=== PATIENT | female | born 1975 | race Hispanic/Latino ===

== ENCOUNTER → 2016-09-22 | Outpatient (REF) | payer OTHER ==
[~2016-09-22] MED LIST: AVEL1TAB OR; COLA100C3 PO; FLAG250T PO; FLUC10TA PO; HYDR200T3 PO; PERCOCET PO; PRIL40CA PO; TYLE325T5 PO
== END ==
LOC: M SFHCLERA 12:40
PROVIDERS: ATTEND Nurse Practitioner Family
DX: R10.30 Lower abdominal pain, unspecified (principal)

== ENCOUNTER 2017-06-22 08:53 | Emergency (ER) | payer OTHER ==
[2017-06-22] MEDS: ONDANSETRON 4MG/2ML VIAL (J2405) IV (09:51)
[2017-06-22] MEDS: NS 1,000 ML IV (09:51)
[2017-06-22] MEDS: KETOROLAC 30 MG/ML VIAL (J1885) IV (09:51)
[2017-06-22 10:01] LABS: BASO % 0.7 % (0.0-1.0); EOS # 0.2 10^3/uL (0.0-0.50); EOS % 3.2 % (0.0-3.0); HEMATOCRIT 41.1 % (36.0-47.0); HEMOGLOBIN 14.1 g/dl (12.0-16.0); IMMATURE GRANULOCYTE % 0.4 % (0-0); LYMPH # 1.8 10^3/uL (1.5-4.5); LYMPH % 33.8 % (24.0-44.0); MEAN CORPUSCULAR HEMOGLOBIN 29.1 pg (27.0-33.0); MEAN CORPUSCULAR HGB CONC 34.3 g/dl (32.0-36.5); MEAN CORPUSCULAR VOLUME 84.9 fl (80.0-96.0); MONO # 0.5 10^3/uL (0.0-0.8); MONO % 9.9 % (0.0-5.0); NEUTROPHILS # 2.8 10^3/uL (1.8-7.7); PLATELET COUNT, AUTOMATED 390 10^3/uL (150-450); RED BLOOD COUNT 4.84 10^6/uL (4.00-5.40); RED CELL DISTRIBUTION WIDTH 13.2 % (11.5-14.5); WHITE BLOOD COUNT 5.4 10^3/uL (4.0-10.0)
[2017-06-22 10:11] LABS: KETONE, URINE AUTO RFX NEGATIVE (NEGATIVE); LEUKOCYTE ESTERASE UR AUTO RFX NEGATIVE (NEGATIVE); MUCUS, URINE RFX SMALL (NEGATIVE); NITRITE, URINE AUTO RFX NEGATIVE (NEGATIVE); RBC, URINE AUTO RFX 2 /HPF (0-3); SPECIFIC GRAVITY UR AUTO RFX 1.019 (1.002-1.035); SQUAM EPITHELIAL CELL UR AURFX 1 /HPF (0-6); WBC, URINE AUTO RFX 1 /HPF (0-3)
[2017-06-22 10:14] LABS: ALBUMIN 3.8 GM/DL (3.2-5.2); ALBUMIN/GLOBULIN RATIO 0.88 (1.00-1.93); ALKALINE PHOSPHATASE 70 U/L (45-117); ALT/SGPT 34 U/L (12-78); AMYLASE 64 U/L (25-115); ANION GAP 7 MEQ/L (8-16); AST/SGOT 21 U/L (7-37); BILIRUBIN,TOTAL 0.4 MG/DL (0.2-1.0); BLOOD UREA NITROGEN 13 MG/DL (7-18); CARBON DIOXIDE LEVEL 27 MEQ/L (21-32); CHLORIDE LEVEL 104 MEQ/L (98-107); CREATININE FOR GFR 0.73 MG/DL (0.55-1.02); GLOMERULAR FILTRATION RATE > 60.0 (>60); GLUCOSE, FASTING 89 MG/DL (70-105); LIPASE 157 U/L (73-393); POTASSIUM SERUM 4.3 MEQ/L (3.5-5.1); SODIUM LEVEL 138 MEQ/L (136-145); TOTAL PROTEIN 8.1 GM/DL (6.4-8.2)
[2017-06-22] MEDS: PERCOCET 5MG/325MG TAB PO (11:33)
== END 2017-06-22 11:46 | disposition home or self-care (01) ==
LOC: M ED 08:53
DX: N83.201 Unspecified ovarian cyst, right side (principal); R10.2 Pelvic and perineal pain; Z87.891 Personal history of nicotine dependence
CPT/HCPCS: J2405

== ENCOUNTER 2017-08-20 11:57 | Outpatient (RCR) | payer OTHER | END 2017-09-11 | LOC: M PT 11:57 | DX: Z47.89 Encounter for other orthopedic aftercare (principal); M75.81 Other shoulder lesions, right shoulder | CPT/HCPCS: 97010 ==

== ENCOUNTER → 2017-08-24 | Outpatient (CLI) | payer OTHER | LOC: M RAD 13:19 | DX: R10.2 Pelvic and perineal pain (principal); N83.201 Unspecified ovarian cyst, right side; R93.5 Abnormal findings on diagnostic imaging of other abdominal regions, including retroperitoneum | CPT/HCPCS: 76856 ==

== ENCOUNTER 2017-09-28 14:21 | Outpatient (RCR) | payer OTHER | END 2017-10-11 | LOC: M PT 14:21 | DX: M75.81 Other shoulder lesions, right shoulder (principal) | CPT/HCPCS: 97110 ==

== ENCOUNTER → 2017-10-01 | Outpatient (CLI) | payer OTHER | LOC: M PAIN 14:30 | DX: G89.29 Other chronic pain (principal); M79.609 Pain in unspecified limb; M79.1 Myalgia; J30.9 Allergic rhinitis, unspecified; K21.9 Gastro-esophageal reflux disease without esophagitis; E66.9 Obesity, unspecified; Z68.35 Body mass index [BMI] 35.0-35.9, adult; Z79.899 Other long term (current) drug therapy | CPT/HCPCS: G0463 ==

== ENCOUNTER → 2017-10-20 | Outpatient (CLI) | payer OTHER | LOC: M PAIN 14:30 | DX: M54.12 Radiculopathy, cervical region (principal); M79.1 Myalgia; J30.89 Other allergic rhinitis; E66.01 Morbid (severe) obesity due to excess calories; Z68.36 Body mass index [BMI] 36.0-36.9, adult; Z79.899 Other long term (current) drug therapy | CPT/HCPCS: G0463 ==

== ENCOUNTER → 2017-11-05 | Outpatient (CLI) | payer OTHER | LOC: M RAD 17:04 | DX: M75.81 Other shoulder lesions, right shoulder (principal) | CPT/HCPCS: 73221 ==

== ENCOUNTER → 2017-11-05 | Outpatient (REF) | payer OTHER ==
[2017-11-05 11:40] LABS: BASO % 0.5 % (0.0-1.0); EOS # 0.2 10^3/uL (0.0-0.50); EOS % 3.7 % (0.0-3.0); HEMATOCRIT 39.7 % (36.0-47.0); HEMOGLOBIN 13.1 g/dl (12.0-15.5); IMMATURE GRANULOCYTE % 0.2 % (0-3.0); LYMPH % 35.7 % (24.0-44.0); MEAN CORPUSCULAR HEMOGLOBIN 28.8 pg (27.0-33.0); MEAN CORPUSCULAR VOLUME 87.3 fl (80.0-96.0); MONO # 0.5 10^3/uL (0.0-0.8); NEUTROPHILS # 2.8 10^3/uL (1.8-7.7); NEUTROPHILS % 50.9 % (36.0-66.0); PLATELET COUNT, AUTOMATED 355 10^3/uL (150-450); RED BLOOD COUNT 4.55 10^6/uL (4.00-5.40); RED CELL DISTRIBUTION WIDTH 12.8 % (11.5-14.5); WHITE BLOOD COUNT 5.5 10^3/uL (4.0-10.0)
[2017-11-05 11:56] LABS: TOTAL 25(OH) VITAMIN D 30.6 NG/ML (30.0-100.0)
[2017-11-05 12:31] LABS: ALBUMIN 3.7 GM/DL (3.2-5.2); ALBUMIN/GLOBULIN RATIO 0.93 (1.00-1.93); ALKALINE PHOSPHATASE 66 U/L (45-117); ALT/SGPT 23 U/L (12-78); ANION GAP 6 MEQ/L (8-16); AST/SGOT 17 U/L (7-37); BILIRUBIN,TOTAL 0.3 MG/DL (0.2-1.0); BLOOD UREA NITROGEN 12 MG/DL (7-18); C REACTIVE PROTEIN QUANTITATIV 0.79 MG/DL (0.00-0.30); CALCIUM LEVEL 8.7 MG/DL (8.5-10.1); CARBON DIOXIDE LEVEL 29 MEQ/L (21-32); CHLORIDE LEVEL 104 MEQ/L (98-107); CREATININE FOR GFR 0.76 MG/DL (0.55-1.30); FREE T4 0.95 NG/DL (0.76-1.46); GLOMERULAR FILTRATION RATE > 60.0 (>58); GLUCOSE, FASTING 93 MG/DL (70-100); POTASSIUM SERUM 4.6 MEQ/L (3.5-5.1); SODIUM LEVEL 139 MEQ/L (136-145); TOTAL PROTEIN 7.7 GM/DL (6.4-8.2)
[2017-11-05 12:59] LABS: ERYTHROCYTE SEDIMENTATION RATE 9 mm/hr (0-20)
== END ==
LOC: M SFHCLERA 08:20
DX: R53.82 Chronic fatigue, unspecified (principal)
CPT/HCPCS: 84443

== ENCOUNTER → 2017-11-05 | Outpatient (CLI) | payer OTHER | LOC: M RAD 17:01 | DX: R93.0 Abnormal findings on diagnostic imaging of skull and head, not elsewhere classified (principal); M79.609 Pain in unspecified limb; R53.82 Chronic fatigue, unspecified; M75.81 Other shoulder lesions, right shoulder | CPT/HCPCS: 70551 ==

== ENCOUNTER → 2018-02-04 | Outpatient (CLI) | payer OTHER | LOC: M RAD 14:02 | DX: M79.609 Pain in unspecified limb (principal) | CPT/HCPCS: 72114 ==

== ENCOUNTER → 2018-02-21 | Outpatient (CLI) | payer OTHER ==
[2018-02-21 14:45] LABS: ANION GAP 8 MEQ/L (8-16); BLOOD UREA NITROGEN 12 MG/DL (7-18); CALCIUM LEVEL 8.9 MG/DL (8.5-10.1); CARBON DIOXIDE LEVEL 26 MEQ/L (21-32); CHLORIDE LEVEL 104 MEQ/L (98-107); CREATININE FOR GFR 0.72 MG/DL (0.55-1.30); GLOMERULAR FILTRATION RATE > 60.0 (>58); LDL CHOLESTEROL 111 MG/DL (<100); POTASSIUM SERUM 4.4 MEQ/L (3.5-5.1); SODIUM LEVEL 138 MEQ/L (136-145); TRIGLYCERIDES LEVEL 324 MG/DL (<150)
[2018-02-22 02:47] LABS: CHOLESTEROL LEVEL 217 MG/DL (<200); CHOLESTEROL RISK RATIO 5.292 (<5); HDL CHOLESTEROL 41 MG/DL (>40); NON-HDL-C 176 MG/DL
[2018-02-22 02:56] LABS: GLUCOSE, FASTING 91 MG/DL (70-100)
== END ==
LOC: M LAB 09:56
DX: Z13.220 Encounter for screening for lipoid disorders (principal); Z13.1 Encounter for screening for diabetes mellitus
CPT/HCPCS: 36415

== ENCOUNTER → 2018-02-22 | Outpatient (CLI) | payer OTHER | LOC: M RAD 09:22 | DX: Z12.31 Encounter for screening mammogram for malignant neoplasm of breast (principal); Z80.49 Family history of malignant neoplasm of other genital organs | CPT/HCPCS: 77067 ==

== ENCOUNTER → 2018-03-17 | Outpatient (CLI) | payer OTHER | LOC: M PAIN 13:30 | DX: M79.7 Fibromyalgia (principal); M51.36 Other intervertebral disc degeneration, lumbar region; J30.89 Other allergic rhinitis; Z79.899 Other long term (current) drug therapy | CPT/HCPCS: G0463 ==

== ENCOUNTER 2018-03-30 13:07 | Outpatient (RCR) | payer OTHER | END 2018-04-13 | disposition home or self-care (01) | LOC: M PT 04-01 10:06 | DX: Z47.89 Encounter for other orthopedic aftercare (principal); Z98.890 Other specified postprocedural states; M25.511 Pain in right shoulder | CPT/HCPCS: 97010 ==

== ENCOUNTER → 2018-04-11 | Outpatient (CLI) | payer OTHER ==
[2018-04-11 10:24] LABS: BASO % 0.6 % (0.0-1.0); EOS # 0.2 10^3/uL (0.0-0.50); EOS % 2.6 % (0.0-3.0); HEMATOCRIT 42.3 % (36.0-47.0); HEMOGLOBIN 13.9 g/dl (12.0-15.5); IMMATURE GRANULOCYTE % 0.3 % (0-3.0); LYMPH # 2.2 10^3/uL (1.5-4.5); MEAN CORPUSCULAR HEMOGLOBIN 28.8 pg (27.0-33.0); MEAN CORPUSCULAR HGB CONC 32.9 g/dl (32.0-36.5); MEAN CORPUSCULAR VOLUME 87.8 fl (80.0-96.0); MONO # 0.6 10^3/uL (0.0-0.8); MONO % 8.9 % (0.0-5.0); NEUTROPHILS # 3.3 10^3/uL (1.8-7.7); NEUTROPHILS % 52.6 % (36.0-66.0); PLATELET COUNT, AUTOMATED 388 10^3/uL (150-450); RED BLOOD COUNT 4.82 10^6/uL (4.00-5.40); RED CELL DISTRIBUTION WIDTH 12.4 % (11.5-14.5); WHITE BLOOD COUNT 6.3 10^3/uL (4.0-10.0)
[2018-04-11 10:45] LABS: ERYTHROCYTE SEDIMENTATION RATE 13 mm/hr (0-20)
[2018-04-11 10:52] LABS: ESTIMATED AVERAGE GLUCOSE 114 MG/DL (60-110); HEMOGLOBIN A1c 5.6 %
[2018-04-11 10:56] LABS: ALBUMIN 3.9 GM/DL (3.2-5.2); ALBUMIN/GLOBULIN RATIO 1.05 (1.00-1.93); ALKALINE PHOSPHATASE 72 U/L (45-117); ALT/SGPT 33 U/L (12-78); ANION GAP 6 MEQ/L (8-16); AST/SGOT 18 U/L (7-37); BILIRUBIN,TOTAL 0.4 MG/DL (0.2-1.0); BLOOD UREA NITROGEN 11 MG/DL (7-18); CALCIUM LEVEL 9.5 MG/DL (8.5-10.1); CARBON DIOXIDE LEVEL 28 MEQ/L (21-32); CHLORIDE LEVEL 104 MEQ/L (98-107); CREATININE FOR GFR 0.76 MG/DL (0.55-1.30); GLOMERULAR FILTRATION RATE > 60.0 (>58); GLUCOSE, FASTING 95 MG/DL (70-100); POTASSIUM SERUM 4.5 MEQ/L (3.5-5.1); RHEUMATOID FACTOR QUANT < 10.0 IU/ML (<15.0); SODIUM LEVEL 138 MEQ/L (136-145); TOTAL PROTEIN 7.6 GM/DL (6.4-8.2)
[2018-04-11 10:59] LABS: FOLATE 10.8 NG/ML
[2018-04-12 13:47] LABS: ALBUMIN % 58.3 % (55.8-66.1); ALPHA-1-GLOBULIN % 3.7 % (2.9-4.9)
[2018-04-12 13:48] LABS: ALBUMIN 4.43 GM/DL (3.29-5.55); ALPHA-1-GLOBULINS 0.28 GM/DL (0.17-0.41); ALPHA-2-GLOBULINS 0.68 GM/DL (0.42-0.99); ALPHA-2-GLOBULINS % 8.9 % (7.1-11.8); BETA-1-GLOBULINS 0.46 GM/DL (0.28-0.60); BETA-1-GLOBULINS % 6.1 % (4.7-7.2); BETA-2-GLOBULINS 0.39 GM/DL (0.19-0.55); BETA-2-GLOBULINS % 5.1 % (3.2-6.5); GAMMA GLOBULIN % 17.9 % (11.1-18.8); GAMMA GLOBULINS 1.36 GM/DL (0.65-1.58)
[2018-04-13 11:12] LABS: DRVV SCREEN 39.6 SEC
[2018-04-14 00:07] LABS: ANCA-ATYPICAL <1:20 titer (Neg:<1:20); ANTI DOUBLE STRAND-DNA AB 1 IU/mL (0-9); ANTINUCLEAR ANTIBODIES DIRECT Negative (Negative); CYTOPLASMIC NEUTROP AB ANCA-C <1:20 titer (Neg:<1:20); Lyme Disease IgG/IgM Antibodie <0.91 ISR (0.00-0.90); Lyme Disease IgM Ab Quantitati <0.80 index (0.00-0.79); PERINUCLEAR AB ANCA-P <1:20 titer (Neg:<1:20); SJOGREN'S ANTI SS-A <0.2 AI (0.0-0.9); SJOGREN'S ANTI SS-B <0.2 AI (0.0-0.9)
== END ==
LOC: M LAB 09:44
DX: M54.2 Cervicalgia (principal); M54.5 Low back pain; R53.1 Weakness
CPT/HCPCS: 82746

== ENCOUNTER 2018-04-15 09:58 | Outpatient (RCR) | payer OTHER | END 2018-05-13 | LOC: M PT 09:58 | DX: Z47.89 Encounter for other orthopedic aftercare (principal); Z98.890 Other specified postprocedural states; M25.511 Pain in right shoulder ==

== ENCOUNTER → 2018-04-21 | Outpatient (REF) | payer OTHER | LOC: M SFHCLERA 10:49 | DX: N64.3 Galactorrhea not associated with childbirth (principal) ==

== ENCOUNTER → 2018-04-22 | Outpatient (CLI) | payer OTHER ==
[2018-04-22 09:54] LABS: ANION GAP 3 MEQ/L (8-16); BLOOD UREA NITROGEN 11 MG/DL (7-18); CALCIUM LEVEL 9.4 MG/DL (8.5-10.1); CARBON DIOXIDE LEVEL 30 MEQ/L (21-32); CHLORIDE LEVEL 103 MEQ/L (98-107); CREATININE FOR GFR 0.75 MG/DL (0.55-1.30); FREE T4 0.84 NG/DL (0.76-1.46); GLOMERULAR FILTRATION RATE > 60.0 (>58); GLUCOSE, FASTING 103 MG/DL (70-100); POTASSIUM SERUM 4.8 MEQ/L (3.5-5.1); SODIUM LEVEL 136 MEQ/L (136-145)
[2018-04-22 10:32] LABS: ESTIMATED AVERAGE GLUCOSE 117 MG/DL (60-110); HEMOGLOBIN A1c 5.7 %
[2018-04-22 12:28] LABS: PROLACTIN 5.8 NG/ML
== END ==
LOC: M LAB 08:32
DX: N64.3 Galactorrhea not associated with childbirth (principal)
CPT/HCPCS: 84146

== ENCOUNTER → 2018-04-27 | Outpatient (CLI) | payer OTHER ==
[2018-04-27 14:25] LABS: IMMUNOGLOBULIN A 179 MG/DL (70-400)
[2018-04-29 00:56] LABS: ENDOMYSIAL ABY IgA Negative (Negative); TISSUE TRANSGLUTAMINASE IgA <2 U/mL (0-3); UNITSIGA FOR GLIADIN IGA 6 units (0-19); UNITSIGG FOR GLIADIN IGG 3 units (0-19)
== END ==
LOC: M SMT 09:44
DX: K29.70 Gastritis, unspecified, without bleeding (principal)
CPT/HCPCS: 86255

== ENCOUNTER 2018-06-02 12:28 | Outpatient (RCR) | payer OTHER ==
[~2018-06-02 12:28] MED LIST changes: +AMIT25TA PO; -AVEL1TAB OR; +AVEL1TAB3 OR; -COLA100C3 PO; +COLA100C5 PO; +MOTR200T44 PO; +NAPR-50 PO; +PERC5TAB12 PO; +ZOFR4TAB14 PO
== END 2018-06-13 ==
LOC: M PT 12:28
PROVIDERS: ATTEND Orthopaedic Surgery
DX: Z47.89 Encounter for other orthopedic aftercare (principal); Z98.890 Other specified postprocedural states

== ENCOUNTER 2018-06-24 08:58 | Outpatient (RCR) | payer OTHER | END 2018-06-24 09:38 | disposition home or self-care (01) | LOC: M PT 08:58 | PROVIDERS: ATTEND Orthopaedic Surgery | DX: M54.2 Cervicalgia (principal); M54.5 Low back pain ==

== ENCOUNTER 2018-06-27 09:05 | Outpatient (RCR) | payer OTHER | END 2018-07-14 | LOC: M PT 09:05 | PROVIDERS: ATTEND Psychiatry & Neurology Neurology | DX: M54.2 Cervicalgia (principal); M54.5 Low back pain ==

== ENCOUNTER → 2018-07-07 | Outpatient (REF) | payer OTHER | LOC: M SFHCLERA 07-05 09:34 | PROVIDERS: ATTEND Family Medicine | DX: R10.13 Epigastric pain (principal) ==

== ENCOUNTER → 2018-07-20 | Outpatient (CLI) | payer OTHER ==
--- NOTE | 2018-08-03 23:47 | ECWPNPC ---
PATIENT NAME: REGINE ELLER : 1975 GENDER: FEMALE VISIT DATE: 07/20/2018 DISCHARGE DATE: 07/20/18 1555 VISIT LOCKED DATE TIME: PHYSICIAN: ADRIAN AUSTIN RESOURCE: ADRIAN AUSTIN HISTORY OF PRESENT ILLNESS HISTORY OF PRESENT ILLNESS: HERE FOR F/U OF CHRONIC GENERALIZED BACK PAIN.SUFFERS FROM CHRONIC BILATERAL WRIST AND KNEE PAIN.SAW NEUROLOGY LOCALLY PER OUR REFERRAL.HAD IMAGING DONE OF SPINE AND HAS BEEN REFERRED TO [place] SURGE[facility].HAS BEEN HAVING CHRONIC NAUSEA AND EPIGASTRIC PAIN.IS FOLLOWING WITH DR. SERVANDO SIMON ,PRIMARY CAREFOR THIS.DISCUSSED TREATMENT OPTIONS.HAVING PERSISTENT LEFT PERISCAPULAR PAIN.RATING PAIN VAS 6/10. PAIN THE PATIENT DESCRIBES THE PAIN... FALL RISK SCREENING: SCREENING :NO FALLS IN THE PAST YEAR CURRENT MEDICATIONS TAKING VITAMIN D 5000 UNITS 1 TABLET ORALLY ONCE A DAY TAKING CALCIUM 1 TAB ORAL DAILY TAKING GABAPENTIN 600 MG TABLET 1 CAPSULE ORALLY THREE TIMES DAILY TAKING LORATADINE 10 MG TABLET 1 TAB ORALLY DAILY TAKING RANITIDINE HCL 150 MG TABLET 1 TABLET AT BEDTIME ORALLY ONCE A DAY TAKING SERTRALINE HCL 25 MG TABLET 1 TABLET ORALLY ONCE A DAY TAKING CYCLOBENZAPRINE HCL 5 MG TABLET 1 TABLET NEEDED ORALLY DAILY MEDICATION LIST REVIEWED AND RECONCILED WITH THE PATIENT PAST MEDICAL HISTORY BRUCELLOSIS ALLERGIC RHINITIS FIBROMYALGIA GERD OBESITY CARPAL TUNNEL LEFT AND RIGHT WEARING NIGHT-TIME BRACES ALLERGIES ENVIRONMENTAL SURGICAL HISTORY 3 C-SECTIONS HYSTERECTOMY LAPAROSCOPY, CYST ASPIRATION, LYSIS OF ADHESIONS OCTOBER 2013 TONSILECTOMY SMALL BOWEL REPAIR OCTOBER 2014 ASPIRATION OF A LEFT ADNEXAL CYST MARCH 2016 LAPAROSCOPY LYSIS OF ADHESIONS, ENTEROCLYSIS, EXCISION OF THE LEFT BENIGN MESOTHELIAL PELVIC CYST RIGHT SALPINGECTOMY JUNE 2016 LAPAROSCOPY, RIGHT OOPHORECTOMY, LYSIS, REMOVAL OF A LEFT BENIGN FIBROUS WALLED CYST. AUGUST 2017 RIGHT SHOULDER SURGERY MARCH 2018 FAMILY HISTORY FATHER: ALIVE 65 YRS, DIAGNOSED WITH DIABETES MOTHER: ALIVE 63 YRS, DIAGNOSED WITH HYPERTENSION PATERNAL GRAND FATHER: PATERNAL GRAND MOTHER: MATERNAL GRAND FATHER: , DIAGNOSED WITH HEART DISEASE MATERNAL GRAND MOTHER: , DIAGNOSED WITH CANCER 1 BROTHER(S) , 1 SISTER(S) - HEALTHY. 2 SON(S) , 1 DAUGHTER(S) - HEALTHY. SISTER IS TYPE 2 DM. SOCIAL HISTORY GENERAL: TOBACCO USE ARE YOU A:NONSMOKER ALCOHOL SCREENING DID YOU HAVE A DRINK CONTAINING ALCOHOL IN THE PAST YEAR?NO POINTS0 INTERPRETATIONNEGATIVE RECREATIONAL DRUG USE: NEVER DRUG USE?NO CAFFEINE CAFFEINE USE?YES HOW OFTEN AND HOW MUCH? 1 CUP COFFEE PER DAY SEXUAL HX HAD SEX IN THE LAST 12 MONTHS (VAGINAL, ORAL, OR ANAL)?YES WITHMEN ONLY USE PROTECTION?NO PREVENTION STRATEGIES DISCUSSED:CONDOMS HAVE YOU EVER HAD AN STD?NO HIV / HEP-C SCREENING HIV TEST OFFERED TO PATIENT:YES DATE OFFERED:09/22/2016 TEST ACCEPTED:NO REASON:PATIENT DECLINED BROCHURE PROVIDED TO PATIENTNO HEP-C TEST OFFERED TO PATIENT:NO [employer] [id number] HINDUISM LANGUAGE LANGUAGES SPOKEN:ESTONIAN POLISH EDUCATION LEVEL OF EDUCATION:HIGH SCHOOL LEARNING BARRIERS / SPECIAL NEEDS BARRIERS TO LEARNING?YES COMMENTS IMPAIRED READING COMPREHENSION REGARDLESS OF LANGUAGE HEARING IMPAIRED?NO VISION IMPAIRED?NO COGNITIVELY IMPAIRED?NO READINESS TO LEARN?YES LEARNING PREFERENCES?YES :DEMONSTRATION/VERBAL INSTRUCTION LEARNING CAPABILITIES PRESENT?NO EMOTIONAL BARRIERS?NO SPECIAL DEVICES?NO TECHNICIAN SUPPORT ENGINEER NEEDED?NO NO DOMESTIC VIOLENCE . OCCUPATION: UNEMPLOYED. DIET: REGULAR. EXERCISE: NO REGULAR EXERCISE. MARITAL STATUS: . OTHERS AT HOME: SPOUSE, 2 CHILDREN. PAIN CLINIC PFS, CLERGY, PUBLIC HEALTH REFERRALS PFS REFERRAL NEEDED?NO CLERGY REFERRAL NEEDED?NO PUBLIC HEALTH REFERRAL NEEDED?NO WAS THE PROVIDER NOTIFIED OF ANY PERTINENT INFO?YES HAS THE PATIENT BEEN EDUCATED REGARDING HIS/HER PLAN OF CARE?YES HAS THE PATIENT BEEN EDUCATED REGARDING PAIN, THE RISK FOR PAIN, THE IMPORTANCE OF EFFECTIVE PAIN MANAGEMENT, AND THE PAIN ASSESSMENT PROCESS?YES HOUSING: OWNS HOME. ADVANCE DIRECTIVE ADVANCE DIRECTIVE DISCUSSED WITH PATIENT:YES DECLINED INFORMATION AND ASSISTANCE AT THIS TIME HOSPITALIZATION/MAJOR DIAGNOSTIC PROCEDURE OPERATIVE PROCEDURES REVIEW OF SYSTEMS REVIEWED BY: PROVIDER: ADRIAN WIGGINS . CONSTITUTIONAL: ANY CHANGE IN YOUR MEDICAL CONDITION? NO . CHILLS NO . FEVER NO . INFECTION: DO YOU HAVE NEW INFECTIONS? NO . DO YOU HAVE HISTORY OF MRSA? NO . MUSCULOSKELETAL: ANY NEW PATTERNS OF PAIN OR NUMBNESS? NO . GASTROENTEROLOGY: ANY NEW CHANGE IN BOWEL CONTROL? NO . GENITOURINARY: ANY NEW CHANGE IN BLADDER CONTROL? NO . IS THERE A CHANCE YOU COULD BE ? NO . HEMATOLOGY/LYMPH: DO YOU TAKE ANY BLOOD THINNERS? (FOR EXAMPLE- COUMADIN, PLAVIX, AGGRENOX, PLATEL, PRADAXA, OR XARELTO) NO . WHEN WAS YOUR LAST DOSE? DATE: TIME: . NEUROLOGY: HAVE YOU FALLEN IN THE PAST 12 MONTHS? NO . ANY NEW EXTREMITY NUMBNESS OR WEAKNESS? NO . CARDIOLOGY: DO YOU HAVE A PACEMAKER OR DEFIBRILLATOR? NO . RESPIRATORY: HAVE YOU BEEN SICK IN THE PAST WEEK? NO . FEVER NO . FLU LIKE SYMPTOMS? NO . COUGH NO . INTEGUMENTARY: DO YOU HAVE ANY RASHES OR OPEN SORES? NO . ALLERGIC/IMMUNO: ARE YOU ALLERGIC TO IV DYE? NO . ANY NEW ALLERGIES? NO . PSYCHIATRIC: DO YOU HAVE THOUGHTS OF HURTING YOURSELF OR SOMEONE ELSE? NO . ARE YOU ABUSED, NEGLECTED, OR IN AN UNSAFE ENVIRONMENT? NO . ENDOCRINOLOGY: ARE YOU DIABETIC? NO . OTHER: DO YOU NEED ANY PRESCRIPTIONS? NO . IF YES, PLEASE LIST: ____ . ANY NEW PROBLEMS WITH YOUR MEDICATIONS? NO . WHEN DID YOU LAST EAT? ____ . WHEN DID YOU LAST DRINK? ____ . WHAT DID YOU LAST DRINK? ____ . NAME OF PERSON DRIVING YOU HOME? ____ . DO YOU HAVE ANY OTHER QUESTIONS OR CONCERNS NO . VITAL SIGNS WT 200 LBS, HT 65 IN, BMI 33.28 INDEX, BP 134/77 MM HG, HR 103 /MIN, RR 16 /MIN, TEMP 97.7 F, OXYGEN SAT % 98%, SAFE IN ENV? (Y/N) Y, NA INITIALS AW 1508, REVIEWED BY: ANUSHKA. EXAMINATION GENERAL EXAMINATION: GENERAL APPEARANCE:AWAKE,ALERT ,PLEAASANT . PSYCHAFFECT NORMAL . LUNGS:LUNG PRINEC ARE CLEAR TO AUSCULTATION BILATERALLY. GOOD MOVEMENT OF AIR . HEART:S1, S2 IN A REGULAR RATE AND RHYTHM. NO SIGNIFICANT MURMURS, RUBS OR GALLOPS NOTED . ASSESSMENTS FIBROMYALGIA - M79.7 (PRIMARY) TREATMENT FIBROMYALGIA NOTES: CURRENTLY BEING FOLLOWED FOR MULTIPLE DIFFERENT PROBLEMS AND UNDERGOING TESTING.CONTINUE CONSERVATIVE CARE AND MEDICATIONS PER PRIMARY CARE. PROCEDURE CODES FA211 ESTABILISHED PATIENT [facility] FACILITY CHARGE DISPOSITION & COMMUNICATION FOLLOW UP 2 MONTHS ELECTRONICALLY SIGNED BY ROSALIE FAIR ON 08/03/2018 AT 03:32 PM EST DISCLAIMER : THIS IS A VISIT SUMMARY EXTRACTED FROM THE [employer] CHART. IT IS NOT A COPY OF THE [employer] PROGRESS NOTE. JENNIFER
== END ==
LOC: M PAIN 14:30
PROVIDERS: ATTEND Nurse Practitioner Family
DX: M79.7 Fibromyalgia (principal); K21.9 Gastro-esophageal reflux disease without esophagitis; E66.9 Obesity, unspecified; J30.9 Allergic rhinitis, unspecified; G56.03 Carpal tunnel syndrome, bilateral upper limbs; Z79.899 Other long term (current) drug therapy; Z68.33 Body mass index [BMI] 33.0-33.9, adult

== ENCOUNTER → 2018-09-22 | Outpatient (CLI) | payer OTHER ==
[~2018-09-22] MED LIST changes: -NAPR-50 PO; +NAPR-837 PO
--- NOTE | 2018-09-23 00:47 | ECWPNPC ---
PATIENT NAME: REGINE ELLER : 1975 GENDER: FEMALE VISIT DATE: 09/22/2018 DISCHARGE DATE: 09/22/18 0000 VISIT LOCKED DATE TIME: PHYSICIAN: RASHEL HICKMAN RESOURCE: RASHEL HICKMAN REASON FOR APPOINTMENT 1. 2 MONTH F/U HISTORY OF PRESENT ILLNESS HISTORY OF PRESENT ILLNESS: PAIN THE PATIENT DESCRIBES THE PAIN... PATIENT WAS SEEN, LEFT THE CLINIC. FALL RISK SCREENING: SCREENING :NO FALLS REPORTED IN THE LAST YEAR CURRENT MEDICATIONS TAKING VITAMIN D 5000 UNITS 1 TABLET ORALLY ONCE A DAY TAKING GABAPENTIN 600 MG TABLET 1 CAPSULE ORALLY THREE TIMES DAILY TAKING LORATADINE 10 MG TABLET 1 TAB ORALLY DAILY TAKING RANITIDINE HCL 150 MG TABLET 1 TABLET AT BEDTIME ORALLY ONCE A DAY TAKING SERTRALINE HCL 50 MG TABLET 1 TABLET ORALLY ONCE A DAY NOT-TAKING CALCIUM 1 TAB ORAL DAILY NOT-TAKING CYCLOBENZAPRINE HCL 5 MG TABLET 1 TABLET NEEDED ORALLY DAILY NOT-TAKING HYDROCORTISONE 1 % CREAM 1 APPLICATION TO AFFECTED AREA OF EAR RECTAL TWICE A DAY MEDICATION LIST REVIEWED AND RECONCILED WITH THE PATIENT PAST MEDICAL HISTORY BRUCELLOSIS ALLERGIC RHINITIS FIBROMYALGIA GERD OBESITY CARPAL TUNNEL LEFT AND RIGHT WEARING NIGHT-TIME BRACES ALLERGIES ENVIRONMENTAL SURGICAL HISTORY 3 C-SECTIONS HYSTERECTOMY LAPAROSCOPY, CYST ASPIRATION, LYSIS OF ADHESIONS OCTOBER 2013 TONSILECTOMY SMALL BOWEL REPAIR OCTOBER 2014 ASPIRATION OF A LEFT ADNEXAL CYST MARCH 2016 LAPAROSCOPY LYSIS OF ADHESIONS, ENTEROCLYSIS, EXCISION OF THE LEFT BENIGN MESOTHELIAL PELVIC CYST RIGHT SALPINGECTOMY JUNE 2016 LAPAROSCOPY, RIGHT OOPHORECTOMY, LYSIS, REMOVAL OF A LEFT BENIGN FIBROUS WALLED CYST. AUGUST 2017 RIGHT SHOULDER SURGERY MARCH 2018 FAMILY HISTORY FATHER: ALIVE 65 YRS, DIAGNOSED WITH DIABETES MOTHER: ALIVE 63 YRS, HYPERTENSION PATERNAL GRAND FATHER: PATERNAL GRAND MOTHER: MATERNAL GRAND FATHER: , HEART DISEASE MATERNAL GRAND MOTHER: , CANCER 1 BROTHER(S) , 1 SISTER(S) - HEALTHY. 2 SON(S) , 1 DAUGHTER(S) - HEALTHY. SISTER IS TYPE 2 DM. SOCIAL HISTORY GENERAL: TOBACCO USE ARE YOU A:NONSMOKER LATEX QUESTIONNAIRE LATEX ALLERGY : HAVE YOU EVER DEVELOPED ANY TYPE OF REACTION AFTER HANDLING LATEX PRODUCTS SUCH RUBBER GLOVES, CONDOMS, DIAPHRAGMS, BALLOONS, SOCKS, OR UNDERWEAR?NO LATEX ALLERGY : HAVE YOU EVER DEVELOPED ANY TYPE OF REACTION DURING OR AFTER DENTAL APPOINTMENT, VAGINAL/RECTAL EXAMINATION, SURGICAL PROCEDURE, OR ANY OTHER EXPOSURE?NO LATEX RISK : HAVE YOU EVER HAD ANY DIFFICULTY BREATHING OR HIVES AFTER EATING OR HANDLING ANY FRUITS, OR VEGETABLES; SUCH KIWI, BANANAS, STONE FRUITS, OR CHESTNUTSNO LATEX RISK : DO YOU HAVE A PREVIOUS PERSONAL HISTORY OF MORE THAN NINE SURGERIES, SPINA BIFIDA, OR REPEATED CATHERTIZATIONS? YES - PLEASE INDICATE : > 9 SURGERIES LATEX RISK : ARE YOU FREQUENTLY EXPOSED TO LATEX PRODUCTS IN YOUR OCCUPATION?NO DATE ASKED : 09/22/2018 ALCOHOL SCREENING DID YOU HAVE A DRINK CONTAINING ALCOHOL IN THE PAST YEAR?NO POINTS0 INTERPRETATIONNEGATIVE RECREATIONAL DRUG USE: NEVER DRUG USE?NO CAFFEINE CAFFEINE USE?YES HOW OFTEN AND HOW MUCH? 1 CUP COFFEE PER DAY SEXUAL HX HAD SEX IN THE LAST 12 MONTHS (VAGINAL, ORAL, OR ANAL)?YES WITHMEN ONLY USE PROTECTION?NO PREVENTION STRATEGIES DISCUSSED:CONDOMS HAVE YOU EVER HAD AN STD?NO HIV / HEP-C SCREENING HIV TEST OFFERED TO PATIENT:YES DATE OFFERED:08/11/2018 TEST ACCEPTED:NO REASON:PATIENT DECLINED BROCHURE PROVIDED TO PATIENTNO HEP-C TEST OFFERED TO PATIENT:NO [employer] [id number] TAOIST LANGUAGE LANGUAGES SPOKEN:UKRAINIAN CHADIAN EDUCATION LEVEL OF EDUCATION:HIGH SCHOOL LEARNING BARRIERS / SPECIAL NEEDS BARRIERS TO LEARNING?YES COMMENTS IMPAIRED READING COMPREHENSION REGARDLESS OF LANGUAGE HEARING IMPAIRED?NO VISION IMPAIRED?NO COGNITIVELY IMPAIRED?NO READINESS TO LEARN?YES LEARNING PREFERENCES?YES :DEMONSTRATION/VERBAL INSTRUCTION LEARNING CAPABILITIES PRESENT?NO EMOTIONAL BARRIERS?NO SPECIAL DEVICES?NO SOCIAL WORK SUPERVISOR NEEDED?NO NO DOMESTIC VIOLENCE . OCCUPATION: UNEMPLOYED. DIET: REGULAR. EXERCISE: NO REGULAR EXERCISE. MARITAL STATUS: , . OTHERS AT HOME: SPOUSE, 3 CHILDREN. PAIN CLINIC PFS, CLERGY, PUBLIC HEALTH REFERRALS PFS REFERRAL NEEDED?NO CLERGY REFERRAL NEEDED?NO PUBLIC HEALTH REFERRAL NEEDED?NO WAS THE PROVIDER NOTIFIED OF ANY PERTINENT INFO?YES HAS THE PATIENT BEEN EDUCATED REGARDING HIS/HER PLAN OF CARE?YES HAS THE PATIENT BEEN EDUCATED REGARDING PAIN, THE RISK FOR PAIN, THE IMPORTANCE OF EFFECTIVE PAIN MANAGEMENT, AND THE PAIN ASSESSMENT PROCESS?YES HOUSING: OWNS HOME. ADVANCE DIRECTIVE ADVANCE DIRECTIVE DISCUSSED WITH PATIENT:YES PATIENT DECLINED HCP INFORMATION AND ASSISTANCE AT THIS TIME. REVIEWED WITH PATIENT 09/22/18 2575 JS. HOSPITALIZATION/MAJOR DIAGNOSTIC PROCEDURE OPERATIVE PROCEDURES REVIEW OF SYSTEMS REVIEWED BY: PROVIDER: . CONSTITUTIONAL: ANY CHANGE IN YOUR MEDICAL CONDITION? NO . CHILLS NO . FEVER NO . INFECTION: DO YOU HAVE NEW INFECTIONS? NO . DO YOU HAVE HISTORY OF MRSA? NO . MUSCULOSKELETAL: ANY NEW PATTERNS OF PAIN OR NUMBNESS? NO . GASTROENTEROLOGY: ANY NEW CHANGE IN BOWEL CONTROL? NO . GENITOURINARY: ANY NEW CHANGE IN BLADDER CONTROL? NO . IS THERE A CHANCE YOU COULD BE ? NO . HEMATOLOGY/LYMPH: DO YOU TAKE ANY BLOOD THINNERS? (FOR EXAMPLE- COUMADIN, PLAVIX, AGGRENOX, PLATEL, PRADAXA, OR XARELTO) NO . WHEN WAS YOUR LAST DOSE? DATE: TIME: . NEUROLOGY: HAVE YOU FALLEN IN THE PAST 12 MONTHS? NO . ANY NEW EXTREMITY NUMBNESS OR WEAKNESS? NO . CARDIOLOGY: DO YOU HAVE A PACEMAKER OR DEFIBRILLATOR? NO . RESPIRATORY: HAVE YOU BEEN SICK IN THE PAST WEEK? NO . FEVER NO . FLU LIKE SYMPTOMS? NO . COUGH NO . INTEGUMENTARY: DO YOU HAVE ANY RASHES OR OPEN SORES? NO . ALLERGIC/IMMUNO: ARE YOU ALLERGIC TO IV DYE? NO . ANY NEW ALLERGIES? NO . PSYCHIATRIC: DO YOU HAVE THOUGHTS OF HURTING YOURSELF OR SOMEONE ELSE? NO . ARE YOU ABUSED, NEGLECTED, OR IN AN UNSAFE ENVIRONMENT? NO . ENDOCRINOLOGY: ARE YOU DIABETIC? NO . OTHER: DO YOU NEED ANY PRESCRIPTIONS? NO . IF YES, PLEASE LIST: ____ . ANY NEW PROBLEMS WITH YOUR MEDICATIONS? NO . WHEN DID YOU LAST EAT? ____ . WHEN DID YOU LAST DRINK? ____ . WHAT DID YOU LAST DRINK? ____ . NAME OF PERSON DRIVING YOU HOME? ____ . DO YOU HAVE ANY OTHER QUESTIONS OR CONCERNS NO . VITAL SIGNS WT 225.8 LBS, HT 65 IN, BMI 37.57 INDEX, BP 135/74 MM HG, HR 81 /MIN, RR 16 /MIN, TEMP 98.7 F, OXYGEN SAT % 96%, SAFE IN ENV? (Y/N) YES, NA INITIALS SC 12:03, REVIEWED BY: FAWN. TREATMENT OTHERS NOTES: LEFT CLINIC.WAS NOT SEEN BY PROVIDER. PROCEDURE CODES FA211 ESTABILISHED PATIENT [facility] FACILITY CHARGE DISPOSITION & COMMUNICATION ELECTRONICALLY SIGNED BY ROSALIE KEY ON 09/22/2018 AT 01:57 PM EDT DISCLAIMER : THIS IS A VISIT SUMMARY EXTRACTED FROM THE [employer] CHART. IT IS NOT A COPY OF THE [employer] PROGRESS NOTE. MTDD
== END ==
LOC: M PAIN 11:30
PROVIDERS: ATTEND Nurse Practitioner Family
DX: M79.7 Fibromyalgia (principal); Z79.899 Other long term (current) drug therapy